=== PATIENT | female | born 1945 | race African-American/Black ===

== ENCOUNTER 2017-04-15 10:52 | Inpatient (IN) | payer MEDICARE, MEDICAID ==
[~2017-04-15] VITALS: Ht 165.1 cm; Wt 74.9 kg
[~2017-04-15 10:52] MED LIST: ACET-1757 PO; ASPI-496 PO; ATOR40TA78 PO; BISA10SU54 PR; CLOP75TA22 PO; DOCU-30 PO; HYDR-3138 PO; LISI-170 PO; MEGE40TA PO; NIFE10CA2 PO; ONDA4TAB10 PO; POLY17PO5 PO
[2017-04-15] MEDS ORDERED: ATROPINE 0.4 MG/ML, 1ML IVPush ONE (11:30)
[2017-04-15] MEDS ORDERED: SODIUM CHLORIDE FLUSH 10ML SYR IVF ONE (11:30)
[2017-04-15 12:24] LABS: ASPARTATE AMINO TRANSFERASE 12 U/L (15-37); BLOOD UREA NITROGEN 8 mg/dL (7-18)
[2017-04-15 12:30] LABS: IS PT STATUS REG ER OR PRE ER? YES
[2017-04-15] MEDS ORDERED: ENALAPRILAT 1.25 MG/ML, 2ML ONE (12:50)
[2017-04-15] MEDS ORDERED: POTASSIUM CHLORIDE 20 MEQ TAB.ER.PRT ONE (12:50)
[2017-04-15] MEDS ORDERED: POTASSIUM CHLORIDE 20 MEQ TAB.ER.PRT PO ONE (13:00)
[2017-04-15] MEDS ORDERED: ENALAPRILAT 1.25 MG/ML, 2ML IV ONE (13:00)
[2017-04-15] MEDS ORDERED: ACETAMINOPHEN 325 MG TABLET PO PRN (14:30)
[2017-04-15] MEDS ORDERED: DEXTROSE 50%, 50ML SYRINGE IVPush PRN (14:30)
[2017-04-15] MEDS ORDERED: NITROGLYCERIN 0.4 MG/SPRAY SL PRN (14:30)
[2017-04-15] MEDS ORDERED: DEXTROSE 4 GM TAB.CHEW PO PRN (14:30)
[2017-04-15] MEDS ORDERED: hydrALAzine 20 MG/ML, 1ML IVPush PRN (14:30)
[2017-04-15] MEDS ORDERED: morphine SULFATE 10 MG/ML, 1ML IVPush PRN (14:30)
[2017-04-15] MEDS ORDERED: ONDANSETRON 2MG/ML, 2ML IVPush PRN (14:30)
[2017-04-15] MEDS ORDERED: GLUCAGON 1 MG IM PRN (14:30)
[2017-04-15] MEDS ORDERED: ENALAPRILAT 1.25 MG/ML, 2ML IVPush PRN (14:30)
[2017-04-15 14:50] VITALS: BP 186/76
[2017-04-15 15:45] LABS: IS PT STATUS REG ER OR PRE ER? NO
[2017-04-15] MEDS: INSULIN ASPART 100 UNITS/ML, PEN SQ-INSULIN SCH ×2 (16:00→20:37)
[2017-04-15] MEDS: HEPARIN 5,000 UNITS/ML, 1ML SQ SCH ×2 (16:19→21:27)
[2017-04-15 19:00] VITALS: BP_SYST 170; BP_SYST 180; BP_DIAS 77; BP_DIAS 81
[2017-04-15] MEDS ORDERED: PROP10TA PO (20:09)
[2017-04-15 20:29] LABS: IS PT STATUS REG ER OR PRE ER? NO
[2017-04-15] MEDS ORDERED: HYDROcodone/APAP 5/325 TABLET PO PRN (20:30)
[2017-04-15] MEDS ORDERED: BISACODYL 10 MG SUPP PR PRN (20:30)
[2017-04-15] MEDS ORDERED: DOCUSATE 100 MG CAPSULE PO PRN (20:30)
[2017-04-15] MEDS: ATORVASTATIN 40 MG TABLET PO SCH (20:31)
[2017-04-15] MEDS: SODIUM CHLORIDE FLUSH 10ML SYR IVF SCH (20:32)
[2017-04-15 21:15] VITALS: BP 167/77
[2017-04-16] VITALS (8 sets, daily range): BP systolic 125–181; BP diastolic 70–102
[2017-04-16] MEDS: ASPIRIN 325 MG TABLET EC PO SCH ×2 (05:26→11:47)
[2017-04-16] MEDS: HEPARIN 5,000 UNITS/ML, 1ML SQ SCH ×3 (05:26→22:03)
[2017-04-16 06:13] LABS: BLOOD UREA NITROGEN 7 mg/dL (7-18)
[2017-04-16] MEDS: INSULIN ASPART 100 UNITS/ML, PEN SQ-INSULIN SCH ×4 (07:00→20:10)
[2017-04-16] MEDS ORDERED: REGADENOSON 0.4 MG/5 ML SYRINGE ONE (08:26)
[2017-04-16] MEDS ORDERED: MEGESTROL ORAL.SUSP 40 MG/ML PO SCH (09:00)
[2017-04-16] MEDS: CLOPIDOGREL 75 MG TABLET PO SCH (11:47)
[2017-04-16] MEDS: LISINOPRIL 20 MG TABLET PO SCH (11:47)
[2017-04-16] MEDS: SODIUM CHLORIDE FLUSH 10ML SYR IVF SCH ×2 (11:50→20:13)
[2017-04-16] MEDS: POLYETHYLENE GLYCOL 17 GM PACKET PO SCH (13:09)
[2017-04-16] MEDS ORDERED: POTASSIUM CHLORIDE 20 MEQ TAB.ER.PRT PO ONE (15:00)
[2017-04-16] MEDS: AMOXICILLIN/CLAV 500-125MG TABLET PO SCH (17:21)
[2017-04-16] MEDS: ATORVASTATIN 40 MG TABLET PO SCH (20:13)
[2017-04-17 00:51] VITALS: BP 137/83
[2017-04-17] MEDS: HEPARIN 5,000 UNITS/ML, 1ML SQ SCH ×2 (06:00→14:30)
[2017-04-17] MEDS: AMOXICILLIN/CLAV 500-125MG TABLET PO SCH (06:00)
[2017-04-17] MEDS: ASPIRIN 325 MG TABLET EC PO SCH (06:18)
[2017-04-17] MEDS: INSULIN ASPART 100 UNITS/ML, PEN SQ-INSULIN SCH ×3 (07:00→16:00)
[2017-04-17 08:25] VITALS: BP 145/76
[2017-04-17] MEDS: CLOPIDOGREL 75 MG TABLET PO SCH (08:30)
[2017-04-17] MEDS: LISINOPRIL 20 MG TABLET PO SCH (08:32)
[2017-04-17] MEDS: POLYETHYLENE GLYCOL 17 GM PACKET PO SCH (08:32)
[2017-04-17] MEDS: SODIUM CHLORIDE FLUSH 10ML SYR IVF SCH (08:33)
[2017-04-17] MEDS ORDERED: MEGESTROL ORAL.SUSP 40 MG/ML PO SCH (09:00)
[2017-04-17 12:40] VITALS: BP 151/80
[2017-04-17] MEDS ORDERED: ATOR40TA78 PO (14:26)
[2017-04-17] MEDS ORDERED: ASPI-496 PO (14:26)
[2017-04-17] MEDS ORDERED: SULF1TAB24 PO (14:26)
[2017-04-17] MEDS ORDERED: PROP10TA PO (14:26)
[2017-04-17] MEDS ORDERED: NIFE10CA2 PO (14:26)
[2017-04-17] MEDS ORDERED: LISI-170 PO (14:26)
[2017-04-17] MEDS ORDERED: MEGE40TA PO (14:26)
[2017-04-17] MEDS ORDERED: DONE5TAB7 PO (14:26)
[2017-04-17] MEDS ORDERED: CLOP75TA22 PO (14:26)
[2017-04-17] MEDS ORDERED: SULFAMETH./TRIMETHOPRIM DS 800MG/160MG TABLET PO SCH (21:00)
== END 2017-04-17 19:19 | disposition home or self-care (01) | DRG 292 ==
LOC: ED 12:05 → EDIP 12:39 → INTOOBSV 12:39 → 4WST 15:00 → OBSVTOIN 04-16 14:47
PROVIDERS: ADMIT Family Medicine; ATTEND Family Medicine
DX: I11.0 Hypertensive heart disease with heart failure (principal); N39.0 Urinary tract infection, site not specified; I25.3 Aneurysm of heart; I50.30 Unspecified diastolic (congestive) heart failure; E78.5 Hyperlipidemia, unspecified; E87.6 Hypokalemia; F03.90 Unspecified dementia, unspecified severity, without behavioral disturbance, psychotic disturbance, mood disturbance, and anxiety; I50.9 Heart failure, unspecified; I25.118 Atherosclerotic heart disease of native coronary artery with other forms of angina pectoris; E11.9 Type 2 diabetes mellitus without complications; K59.00 Constipation, unspecified; K21.9 Gastro-esophageal reflux disease without esophagitis; Z87.891 Personal history of nicotine dependence; Z90.49 Acquired absence of other specified parts of digestive tract; I69.398 Other sequelae of cerebral infarction; Z79.82 Long term (current) use of aspirin; Z79.899 Other long term (current) drug therapy; R42 Dizziness and giddiness; I35.0 Nonrheumatic aortic (valve) stenosis
CPT/HCPCS: 36415; 71010; 78452; 80048; 80053; 80061; 81001; 82962; 83036; 83735; 83880; 84443; 84484; 85025; 85610; 87086; 87147; 93005; 93017; 93306; 96374; G0378; J1644; J1815; J2785; A9502; C9898; J0360

== ENCOUNTER 2017-08-31 14:49 | Inpatient (IN) | payer MEDICARE, MEDICAID ==
[~2017-08-31] VITALS: Ht 165.1 cm; Wt 72.2 kg
[~2017-08-31 14:49] MED LIST changes: -CLOP75TA22 PO; +CLOP75TA52 PO; +DOCU-131 PO; -DOCU-30 PO; +DONE5TAB7 PO; -HYDR-3138 PO; +HYDR-3237 PO; +PROP10TA PO; +SULF1TAB24 PO
[2017-08-31] MEDS ORDERED: SODIUM CHLORIDE FLUSH 10ML SYR IVF ONE (15:30)
[2017-08-31] MEDS ORDERED: SODIUM CHLORIDE 0.9% 1,000ML IVBOLUS ONE (15:30)
[2017-08-31] MEDS ORDERED: ASPIRIN 81 MG TABLET CHEW PO ONE (15:30)
[2017-08-31] MEDS ORDERED: ASPIRIN 81 MG TABLET CHEW ONE (15:36)
[2017-08-31 15:57] LABS: BLOOD UREA NITROGEN 7 mg/dL (7-18)
[2017-08-31 16:03] LABS: ASPARTATE AMINO TRANSFERASE 12 U/L (15-37)
[2017-08-31 16:04] LABS: IS PT STATUS REG ER OR PRE ER? YES
[2017-08-31 16:09] LABS: HEMATOCRIT 44.4 % (34.6-47.8); HEMOGLOBIN 15.1 g/dL (11.7-16.4); WHITE BLOOD COUNT 8.2 x10^3/uL (3.4-10)
[2017-08-31 16:54] LABS: PATH.CAST-FLAG NOT PRESENT; SPERM-FLAG NOT PRESENT; SRC-FLAG NOT PRESENT; XTAL-FLAG NOT PRESENT; YLC-FLAG NOT PRESENT
[2017-08-31] MEDS ORDERED: OMNIPAQUE 350 MG/ML, 100ML BOTTLE ONE (17:58)
[2017-08-31] MEDS ORDERED: CEFTRIAXONE PMX 1GM/50ML 50 ML IV ONE (19:00)
[2017-08-31] MEDS ORDERED: METOCLOPRAMIDE 5 MG/ML, 2ML IVPush ONE (19:30)
[2017-08-31] MEDS ORDERED: ONDANSETRON 2MG/ML, 2ML IVPush ONE (19:30)
[2017-08-31] MEDS ORDERED: METOCLOPRAMIDE 5 MG/ML, 2ML ONE (19:57)
[2017-08-31] MEDS ORDERED: CEFTRIAXONE PMX 1GM/50ML 50 ML ONE (19:57)
[2017-08-31] MEDS ORDERED: ONDANSETRON 2MG/ML, 2ML ONE (19:58)
[2017-08-31 21:18] VITALS: BP 156/66
[2017-08-31] MEDS ORDERED: HYDROcodone/APAP 5/325 TABLET PO PRN (22:00)
[2017-08-31] MEDS ORDERED: BISACODYL 10 MG SUPP PR PRN (22:00)
[2017-08-31] MEDS ORDERED: DOCUSATE 100 MG CAPSULE PO PRN (22:00)
[2017-08-31] MEDS ORDERED: ACETAMINOPHEN 325 MG TABLET PO PRN (22:00)
[2017-08-31] MEDS ORDERED: ENALAPRILAT 1.25 MG/ML, 2ML IVPush PRN (22:00)
[2017-08-31] MEDS ORDERED: hydrALAzine 20 MG/ML, 1ML IVPush PRN (22:00)
[2017-08-31] MEDS: ENOXAPARIN 40 MG/0.4 ML SQ SCH (22:42)
[2017-09-01 01:08] LABS: IS PT STATUS REG ER OR PRE ER? NO
[2017-09-01 02:00] VITALS: BP 155/92
[2017-09-01 05:54] LABS: HEMOGLOBIN 13.6 g/dL (11.7-16.4); WHITE BLOOD COUNT 6.7 x10^3/uL (3.4-10)
[2017-09-01 06:07] LABS: BLOOD UREA NITROGEN 6 mg/dL (7-18)
[2017-09-01 06:22] LABS: IS PT STATUS REG ER OR PRE ER? NO
[2017-09-01] MEDS ORDERED: POTASSIUM CHLORIDE 20 MEQ in SODIUM CHLORIDE 0.45% 1,000 ML IV SCH (06:30)
[2017-09-01 06:45] VITALS: BP 171/80
[2017-09-01] MEDS: ASPIRIN 81 MG TABLET EC PO SCH (08:17)
[2017-09-01] MEDS: CLOPIDOGREL 75 MG TABLET PO SCH (08:17)
[2017-09-01] MEDS: LISINOPRIL 20 MG TABLET PO SCH (08:18)
[2017-09-01] MEDS: POLYETHYLENE GLYCOL 17 GM PACKET PO SCH (09:00)
[2017-09-01] MEDS ORDERED: OMEP-231 PO (11:20)
[2017-09-01 16:00] VITALS: BP 168/90
[2017-09-01] MEDS: POTASSIUM CHLORIDE 20 MEQ TAB.ER.PRT PO SCH (16:25)
[2017-09-01 20:13] VITALS: BP 165/80
[2017-09-01] MEDS ORDERED: ATORVASTATIN 40 MG TABLET PO SCH (21:00)
[2017-09-01] MEDS ORDERED: DONEPEZIL 5 MG TABLET PO SCH (21:00)
[2017-09-01] MEDS: ENOXAPARIN 40 MG/0.4 ML SQ SCH (21:50)
[2017-09-02 02:11] VITALS: BP 190/105
[2017-09-02 07:03] VITALS: BP 138/70
[2017-09-02] MEDS: LISINOPRIL 20 MG TABLET PO SCH (08:56)
[2017-09-02] MEDS: POLYETHYLENE GLYCOL 17 GM PACKET PO SCH (08:56)
[2017-09-02] MEDS: POTASSIUM CHLORIDE 20 MEQ TAB.ER.PRT PO SCH (08:56)
[2017-09-02] MEDS: ASPIRIN 81 MG TABLET EC PO SCH (08:56)
[2017-09-02] MEDS: CLOPIDOGREL 75 MG TABLET PO SCH (08:56)
[2017-09-02 13:23] VITALS: BP 125/70
== END 2017-09-02 19:16 | disposition home or self-care (01) | DRG 391 ==
LOC: ED 16:22 → INTOOBSV 19:28 → EDIP 19:28 → 5SO 21:12 → OBSVTOIN 09-01 18:46 → 4NOR 09-01 19:26
PROVIDERS: ADMIT Emergency Medicine; ATTEND Hospitalist
DX: K21.9 Gastro-esophageal reflux disease without esophagitis (principal); G93.40 Encephalopathy, unspecified; F03.90 Unspecified dementia, unspecified severity, without behavioral disturbance, psychotic disturbance, mood disturbance, and anxiety; I35.0 Nonrheumatic aortic (valve) stenosis; N30.90 Cystitis, unspecified without hematuria; I25.10 Atherosclerotic heart disease of native coronary artery without angina pectoris; N93.9 Abnormal uterine and vaginal bleeding, unspecified; G44.209 Tension-type headache, unspecified, not intractable; I10 Essential (primary) hypertension; F41.1 Generalized anxiety disorder; R79.1 Abnormal coagulation profile; M19.90 Unspecified osteoarthritis, unspecified site; H53.8 Other visual disturbances; Z60.2 Problems related to living alone; Z79.02 Long term (current) use of antithrombotics/antiplatelets; Z87.891 Personal history of nicotine dependence; Z86.73 Personal history of transient ischemic attack (TIA), and cerebral infarction without residual deficits; Z90.49 Acquired absence of other specified parts of digestive tract
CPT/HCPCS: 36415; 70450; 71010; 71275; 80048; 80053; 81001; 83880; 84443; 84484; 85025; 85379; 87040; 87086; 93005; 96361; 96374; G0378; J0696; J1650; Q9967; J0360; J2765; J7030

== ENCOUNTER 2017-09-20 10:48 | Inpatient (IN) | payer MEDICARE, MEDICAID ==
[~2017-09-20] VITALS: Ht 165.1 cm; Wt 67.5 kg
[~2017-09-20 10:48] MED LIST changes: +OMEP-231 PO
[2017-09-20 11:29] LABS: HEMATOCRIT 44.6 % (34.6-47.8); HEMOGLOBIN 15.1 g/dL (11.7-16.4); WHITE BLOOD COUNT 6.4 x10^3/uL (3.4-10)
[2017-09-20] MEDS ORDERED: SODIUM CHLORIDE FLUSH 10ML SYR IVF ONE (11:30)
[2017-09-20 11:44] LABS: ASPARTATE AMINO TRANSFERASE 12 U/L (15-37); BLOOD UREA NITROGEN 9 mg/dL (7-18)
[2017-09-20 11:45] LABS: IS PT STATUS REG ER OR PRE ER? YES
[2017-09-20] MEDS ORDERED: ONDANSETRON 2MG/ML, 2ML IVPush PRN (14:00)
[2017-09-20] MEDS ORDERED: ENALAPRILAT 1.25 MG/ML, 2ML IVPush PRN (14:00)
[2017-09-20] MEDS ORDERED: BISACODYL 10 MG SUPP PR PRN (14:00)
[2017-09-20] MEDS ORDERED: DOCUSATE 100 MG CAPSULE PO PRN (14:00)
[2017-09-20] MEDS ORDERED: ONDANSETRON ODT 4 MG PO PRN (14:00)
[2017-09-20] MEDS ORDERED: POLYETHYLENE GLYCOL 17 GM PACKET PO PRN (14:00)
[2017-09-20] MEDS ORDERED: DEXTROSE 4 GM TAB.CHEW PO PRN (15:30)
[2017-09-20] MEDS ORDERED: DEXTROSE 50%, 50ML SYRINGE IVPush PRN (15:30)
[2017-09-20] MEDS ORDERED: GLUCAGON 1 MG IM PRN (15:30)
[2017-09-20 15:45] VITALS: BP 186/97
[2017-09-20] MEDS: PROPRANOLOL 10 MG TABLET PO SCH ×2 (15:47→20:18)
[2017-09-20] MEDS: ENOXAPARIN 40 MG/0.4 ML SQ SCH (15:48)
[2017-09-20] MEDS: INSULIN ASPART 100 UNITS/ML, PEN SQ-INSULIN SCH ×2 (17:33→20:27)
[2017-09-20 19:28] VITALS: BP 147/82
[2017-09-20] MEDS: DONEPEZIL 5 MG TABLET PO SCH (20:17)
[2017-09-20] MEDS: SODIUM CHLORIDE FLUSH 10ML SYR IVF SCH (20:17)
[2017-09-20] MEDS: ATORVASTATIN 40 MG TABLET PO SCH (20:18)
[2017-09-20] MEDS: ACETAMINOPHEN 325 MG TABLET PO PRN (22:11)
[2017-09-21 02:29] VITALS: BP 126/70
[2017-09-21 05:14] LABS: HEMATOCRIT 43.3 % (34.6-47.8); HEMOGLOBIN 14.6 g/dL (11.7-16.4); WHITE BLOOD COUNT 6.7 x10^3/uL (3.4-10)
[2017-09-21 05:32] LABS: BLOOD UREA NITROGEN 10 mg/dL (7-18)
[2017-09-21] MEDS: PROPRANOLOL 10 MG TABLET PO SCH ×4 (06:00→17:55)
[2017-09-21] MEDS: INSULIN ASPART 100 UNITS/ML, PEN SQ-INSULIN SCH ×4 (07:42→20:06)
[2017-09-21] MEDS ORDERED: POTASSIUM CHLORIDE 20 MEQ TAB.ER.PRT PO ONE (08:00)
[2017-09-21 08:36] VITALS: BP 122/78
[2017-09-21] MEDS: LISINOPRIL 20 MG TABLET PO SCH (08:39)
[2017-09-21] MEDS: OMEPRAZOLE 20 MG CAPSULE.DR PO SCH (08:39)
[2017-09-21] MEDS: CLOPIDOGREL 75 MG TABLET PO SCH (08:39)
[2017-09-21] MEDS: SODIUM CHLORIDE FLUSH 10ML SYR IVF SCH ×2 (08:40→20:06)
[2017-09-21] MEDS: ASPIRIN 81 MG TABLET EC PO SCH (08:40)
[2017-09-21 13:37] VITALS: BP 145/78
[2017-09-21] MEDS: ENOXAPARIN 40 MG/0.4 ML SQ SCH (16:29)
[2017-09-21] MEDS: DONEPEZIL 5 MG TABLET PO SCH (20:06)
[2017-09-21] MEDS: ATORVASTATIN 40 MG TABLET PO SCH (20:06)
[2017-09-21 20:48] VITALS: BP 121/72
[2017-09-22 01:18] VITALS: BP 118/64
[2017-09-22 05:29] LABS: BLOOD UREA NITROGEN 15 mg/dL (7-18)
[2017-09-22] MEDS: PROPRANOLOL 10 MG TABLET PO SCH ×4 (06:20→22:01)
[2017-09-22] MEDS: INSULIN ASPART 100 UNITS/ML, PEN SQ-INSULIN SCH ×4 (07:00→22:01)
[2017-09-22 07:40] VITALS: BP 146/89
[2017-09-22] MEDS: ASPIRIN 81 MG TABLET EC PO SCH (08:37)
[2017-09-22] MEDS: SODIUM CHLORIDE FLUSH 10ML SYR IVF SCH ×2 (08:37→22:01)
[2017-09-22] MEDS: OMEPRAZOLE 20 MG CAPSULE.DR PO SCH (08:37)
[2017-09-22] MEDS: LISINOPRIL 20 MG TABLET PO SCH (08:37)
[2017-09-22] MEDS: CLOPIDOGREL 75 MG TABLET PO SCH (08:37)
[2017-09-22] MEDS: ACETAMINOPHEN 325 MG TABLET PO PRN (08:51)
[2017-09-22 13:15] VITALS: BP 149/83
[2017-09-22] MEDS: ENOXAPARIN 40 MG/0.4 ML SQ SCH (16:45)
[2017-09-22 20:29] VITALS: BP 106/55
[2017-09-22] MEDS: ATORVASTATIN 40 MG TABLET PO SCH (22:01)
[2017-09-22] MEDS: DONEPEZIL 5 MG TABLET PO SCH (22:01)
[2017-09-23 05:16] VITALS: BP 110/64
[2017-09-23] MEDS: PROPRANOLOL 10 MG TABLET PO SCH ×4 (06:45→21:22)
[2017-09-23] MEDS: INSULIN ASPART 100 UNITS/ML, PEN SQ-INSULIN SCH ×4 (07:00→21:23)
[2017-09-23 07:30] VITALS: BP 131/83
[2017-09-23] MEDS: OMEPRAZOLE 20 MG CAPSULE.DR PO SCH (09:19)
[2017-09-23] MEDS: LISINOPRIL 20 MG TABLET PO SCH (09:19)
[2017-09-23] MEDS: ASPIRIN 81 MG TABLET EC PO SCH (09:19)
[2017-09-23] MEDS: SODIUM CHLORIDE FLUSH 10ML SYR IVF SCH ×2 (09:19→21:23)
[2017-09-23] MEDS: CLOPIDOGREL 75 MG TABLET PO SCH (09:19)
[2017-09-23 14:05] VITALS: BP 129/76
[2017-09-23] MEDS: ENOXAPARIN 40 MG/0.4 ML SQ SCH (15:30)
[2017-09-23 19:32] VITALS: BP 148/80
[2017-09-23] MEDS: ATORVASTATIN 40 MG TABLET PO SCH (21:22)
[2017-09-23] MEDS: DONEPEZIL 5 MG TABLET PO SCH (21:22)
[2017-09-24 02:00] VITALS: BP 165/94
[2017-09-24] MEDS: PROPRANOLOL 10 MG TABLET PO SCH ×4 (05:46→21:00)
[2017-09-24 06:56] VITALS: BP 162/88
[2017-09-24] MEDS: INSULIN ASPART 100 UNITS/ML, PEN SQ-INSULIN SCH ×4 (07:00→21:00)
[2017-09-24] MEDS: CLOPIDOGREL 75 MG TABLET PO SCH (11:05)
[2017-09-24] MEDS: LISINOPRIL 20 MG TABLET PO SCH (11:05)
[2017-09-24] MEDS: SODIUM CHLORIDE FLUSH 10ML SYR IVF SCH ×2 (11:05→21:00)
[2017-09-24] MEDS: ASPIRIN 81 MG TABLET EC PO SCH (11:05)
[2017-09-24] MEDS: OMEPRAZOLE 20 MG CAPSULE.DR PO SCH (11:05)
[2017-09-24 13:24] VITALS: BP 161/91
[2017-09-24] MEDS: HALOPERIDOL 1 MG TABLET PO PRN (13:57)
[2017-09-24] MEDS: AMOXICILLIN/CLAV 500-125MG TABLET PO SCH (13:57)
[2017-09-24] MEDS ORDERED: AMOX-367 PO (15:11)
[2017-09-24] MEDS: ENOXAPARIN 40 MG/0.4 ML SQ SCH (15:47)
[2017-09-24 19:47] VITALS: BP 108/69
[2017-09-24] MEDS: DONEPEZIL 5 MG TABLET PO SCH (21:00)
[2017-09-24] MEDS: ATORVASTATIN 40 MG TABLET PO SCH (21:00)
[2017-09-25] MEDS: AMOXICILLIN/CLAV 500-125MG TABLET PO SCH ×2 (02:19→14:23)
[2017-09-25] MEDS: PROPRANOLOL 10 MG TABLET PO SCH ×5 (05:34→20:32)
[2017-09-25] MEDS: INSULIN ASPART 100 UNITS/ML, PEN SQ-INSULIN SCH ×4 (07:00→20:27)
[2017-09-25] MEDS: ASPIRIN 81 MG TABLET EC PO SCH ×2 (07:44→08:44)
[2017-09-25] MEDS: SODIUM CHLORIDE FLUSH 10ML SYR IVF SCH ×2 (07:44→20:31)
[2017-09-25] MEDS: CLOPIDOGREL 75 MG TABLET PO SCH ×2 (07:44→08:45)
[2017-09-25] MEDS: LISINOPRIL 20 MG TABLET PO SCH ×2 (07:44→08:45)
[2017-09-25] MEDS: OMEPRAZOLE 20 MG CAPSULE.DR PO SCH ×2 (07:44→08:47)
[2017-09-25 08:41] VITALS: BP 140/69
[2017-09-25 13:53] VITALS: BP 107/69
[2017-09-25] MEDS: ENOXAPARIN 40 MG/0.4 ML SQ SCH (14:23)
[2017-09-25 18:56] VITALS: BP 113/63
[2017-09-25] MEDS: DONEPEZIL 5 MG TABLET PO SCH (20:32)
[2017-09-25] MEDS: ATORVASTATIN 40 MG TABLET PO SCH (20:32)
[2017-09-26 01:46] VITALS: BP 112/71
[2017-09-26] MEDS: AMOXICILLIN/CLAV 500-125MG TABLET PO SCH ×2 (02:12→14:39)
[2017-09-26] MEDS: PROPRANOLOL 10 MG TABLET PO SCH ×4 (05:28→20:46)
[2017-09-26 06:55] VITALS: BP 108/67
[2017-09-26] MEDS: INSULIN ASPART 100 UNITS/ML, PEN SQ-INSULIN SCH ×4 (07:00→20:48)
[2017-09-26] MEDS: LISINOPRIL 20 MG TABLET PO SCH (08:05)
[2017-09-26] MEDS: SODIUM CHLORIDE FLUSH 10ML SYR IVF SCH ×2 (08:05→20:48)
[2017-09-26] MEDS: ASPIRIN 81 MG TABLET EC PO SCH (08:05)
[2017-09-26] MEDS: OMEPRAZOLE 20 MG CAPSULE.DR PO SCH (08:05)
[2017-09-26] MEDS: CLOPIDOGREL 75 MG TABLET PO SCH (08:06)
[2017-09-26 13:15] VITALS: BP 114/72
[2017-09-26] MEDS: ACETAMINOPHEN 325 MG TABLET PO PRN (14:40)
[2017-09-26] MEDS: ENOXAPARIN 40 MG/0.4 ML SQ SCH (14:43)
[2017-09-26 20:07] VITALS: BP 110/68
[2017-09-26] MEDS: DONEPEZIL 5 MG TABLET PO SCH (20:47)
[2017-09-26] MEDS: ATORVASTATIN 40 MG TABLET PO SCH (20:48)
[2017-09-27] MEDS: AMOXICILLIN/CLAV 500-125MG TABLET PO SCH ×3 (01:28→14:05)
[2017-09-27] MEDS: HALOPERIDOL 1 MG TABLET PO PRN ×2 (01:28→07:09)
[2017-09-27 02:12] VITALS: BP 102/68
[2017-09-27] MEDS: PROPRANOLOL 10 MG TABLET PO SCH ×4 (06:47→20:02)
[2017-09-27] MEDS: INSULIN ASPART 100 UNITS/ML, PEN SQ-INSULIN SCH ×4 (07:00→20:09)
[2017-09-27] MEDS: CLOPIDOGREL 75 MG TABLET PO SCH (07:56)
[2017-09-27] MEDS: ASPIRIN 81 MG TABLET EC PO SCH (07:56)
[2017-09-27] MEDS: LISINOPRIL 20 MG TABLET PO SCH (07:56)
[2017-09-27] MEDS: OMEPRAZOLE 20 MG CAPSULE.DR PO SCH (07:56)
[2017-09-27] MEDS: SODIUM CHLORIDE FLUSH 10ML SYR IVF SCH ×2 (07:56→20:02)
[2017-09-27 08:26] VITALS: BP 100/65
[2017-09-27 13:37] VITALS: BP 118/75
[2017-09-27] MEDS: ENOXAPARIN 40 MG/0.4 ML SQ SCH (15:30)
[2017-09-27 18:57] VITALS: BP 131/81
[2017-09-27] MEDS: ATORVASTATIN 40 MG TABLET PO SCH (20:02)
[2017-09-27] MEDS: DONEPEZIL 5 MG TABLET PO SCH (20:02)
[2017-09-28] MEDS: AMOXICILLIN/CLAV 500-125MG TABLET PO SCH ×2 (02:00→15:32)
[2017-09-28 03:00] VITALS: BP 109/84
[2017-09-28] MEDS: PROPRANOLOL 10 MG TABLET PO SCH ×4 (06:04→20:41)
[2017-09-28] MEDS: INSULIN ASPART 100 UNITS/ML, PEN SQ-INSULIN SCH ×4 (07:00→20:48)
[2017-09-28] MEDS: SODIUM CHLORIDE FLUSH 10ML SYR IVF SCH ×2 (08:02→20:41)
[2017-09-28 08:05] VITALS: BP 114/70
[2017-09-28] MEDS: OMEPRAZOLE 20 MG CAPSULE.DR PO SCH (08:08)
[2017-09-28] MEDS: LISINOPRIL 20 MG TABLET PO SCH (08:10)
[2017-09-28] MEDS: ASPIRIN 81 MG TABLET EC PO SCH (08:11)
[2017-09-28] MEDS: CLOPIDOGREL 75 MG TABLET PO SCH (08:12)
[2017-09-28 15:17] VITALS: BP 117/77
[2017-09-28] MEDS: ENOXAPARIN 40 MG/0.4 ML SQ SCH (15:30)
[2017-09-28] MEDS: ACETAMINOPHEN 325 MG TABLET PO PRN (15:36)
[2017-09-28 19:13] VITALS: BP 110/69
[2017-09-28] MEDS: DONEPEZIL 5 MG TABLET PO SCH (20:41)
[2017-09-28] MEDS: ATORVASTATIN 40 MG TABLET PO SCH (20:41)
[2017-09-29 01:45] VITALS: BP 115/66
[2017-09-29] MEDS: AMOXICILLIN/CLAV 500-125MG TABLET PO SCH ×2 (02:11→13:01)
[2017-09-29] MEDS: PROPRANOLOL 10 MG TABLET PO SCH ×2 (05:32→10:25)
[2017-09-29] MEDS: INSULIN ASPART 100 UNITS/ML, PEN SQ-INSULIN SCH ×2 (07:00→10:28)
[2017-09-29 07:56] VITALS: BP 118/74
[2017-09-29] MEDS: OMEPRAZOLE 20 MG CAPSULE.DR PO SCH (09:00)
[2017-09-29] MEDS ORDERED: LISINOPRIL 20 MG TABLET PO SCH (09:00)
[2017-09-29] MEDS: SODIUM CHLORIDE FLUSH 10ML SYR IVF SCH (10:24)
[2017-09-29] MEDS: ASPIRIN 81 MG TABLET EC PO SCH (10:24)
[2017-09-29] MEDS: CLOPIDOGREL 75 MG TABLET PO SCH (10:24)
[2017-09-29] MEDS ORDERED: PNEUMOCOCCAL 23 VACCINE IM-VACC ONE (12:30)
[2017-09-29] MEDS ORDERED: FLU VACC QS2017-18 (36MOS+) UP/PF 0.5 ML IM-VACC ONE (12:30)
[2017-09-29] MEDS ORDERED: ACET325T14 PO (13:20)
== END 2017-09-29 15:16 | DRG 689 ==
LOC: ED 12:50 → EDIP 13:00 → 5SO 13:55 → 3NE 09-22 14:09
PROVIDERS: ADMIT Family Medicine; ATTEND Family Medicine
DX: N39.0 Urinary tract infection, site not specified (principal); G93.40 Encephalopathy, unspecified; E11.65 Type 2 diabetes mellitus with hyperglycemia; F03.90 Unspecified dementia, unspecified severity, without behavioral disturbance, psychotic disturbance, mood disturbance, and anxiety; J44.9 Chronic obstructive pulmonary disease, unspecified; M19.90 Unspecified osteoarthritis, unspecified site; E87.6 Hypokalemia; I10 Essential (primary) hypertension; I25.10 Atherosclerotic heart disease of native coronary artery without angina pectoris; I25.2 Old myocardial infarction; Z79.4 Long term (current) use of insulin; Z79.82 Long term (current) use of aspirin; Z86.73 Personal history of transient ischemic attack (TIA), and cerebral infarction without residual deficits; Z90.49 Acquired absence of other specified parts of digestive tract; Z87.891 Personal history of nicotine dependence; Z79.899 Other long term (current) drug therapy
CPT/HCPCS: 36415; 71010; 80048; 80053; 81001; 82565; 82962; 83880; 84443; 84484; 85025; 85610; 85730; 87077; 87086; 90686; 90732; 93005; 99285; J1650; J1815